=== PATIENT | female | born 1995 | race Caucasian/White ===

== ENCOUNTER 2022-07-21 11:42 | Emergency (ER) | payer OTHER, SELFPAY ==
[2022-07-21] VITALS (7 sets, daily range): BP systolic 117–123; BP diastolic 58–83; PULSE 57–75; RESP 15; TEMP 36.6; O2SAT 99–100; BMI 34.7
[2022-07-21 12:08] LABS: Add Manual Diff / Slide Review NO; Basophils Absolute Auto 0 /uL (0-100); Basophils Percent Auto 0.4 % (0-2); Eosinophils Absolute Auto 0 /uL (0-450); Eosinophils Percent Auto 0.8 % (2-4); Hematocrit 39.7 % (36-46); Lymphocytes Absolute Auto 1200 /uL (1100-4500); Lymphocytes Percent Auto 20.4 % (25-40); Mean Corpuscular HGB Conc 32.7 % (30-36); Mean Corpuscular Hemoglobin 28.3 PG (26-34); Mean Corpuscular Volume 86.4 fL (80-100); Monocytes Absolute Auto 700 /uL (0-900); Monocytes Percent Auto 12.3 % (3-14); Neutrophils Absolute Auto 3800 /uL (1500-7000); Neutrophils Percent Auto 66.1 % (50-75); Platelet Count 235 X10^3/uL (150-400); Red Blood Cell Count 4.59 X10^6/uL (4.0-5.2); Red Cell Distribution Width 13.1 % (11.6-14.8); White Blood Cell Count 5.8 X10^3/uL (4.5-11.0)
[2022-07-21 12:17] LABS: Alanine Aminotransferase 18 IU/L (<35); Alkaline Phosphatase 72 U/L (38-126); Aspartate Aminotransferase 23 IU/L (14-36); BUN Creatinine Ratio 15.9 (6-22); Bilirubin Total 0.4 mg/dL (0.2-1.3); Blood Urea Nitrogen 11 mg/dL (7-17); Calcium 8.8 mg/dL (8.4-10.2); Carbon Dioxide 26 mmol/L (22-32); Chloride 100 mmol/L (98-107); Estimated Glomerular Filt Rate > 60 mL/min (>60); Glucose 83 mg/dL (70-100); HEMOLYSIS < 15 (0-50); Lipase 34 U/L (23-300); Potassium 3.7 mmol/L (3.4-5.1); Sodium 136 mmol/L (137-145); Total Protein 7.7 g/dL (6.3-8.2)
[2022-07-21 14:14] LABS: Influenza A - CEPHEID Flu A NEGATIVE (NEGATIVE); Influenza B - CEPHEID Flu B NEGATIVE (NEGATIVE); Respiratory Syncytial Virus Negative (Negative)
[2022-07-21 14:26] LABS: COVID-19 CEPHEID 4-PLEX PCR Negative (Negative)
[2022-07-21] MEDS: KETOROLAC 30 MG/ML VIAL 15 MG IV (14:26)
[2022-07-21] MEDS: ONDANSETRON 4 MG/2 ML INJ IV (14:27)
--- NOTE | 2022-07-21 14:30 | DI.CT.S_ITS ---
PROCEDURE: CT ABDOMEN PELVIS W CON INDICATIONS: c/f appendicitis vs cholelithiasis vs colitis? RUQ RLQ pain TECHNIQUE: After the administration of intravenous contrast, axial sections acquired from the lung bases to the pubic symphysis. Coronal and sagittal reformats were performed. For radiation dose reduction, the following was used: automated exposure control, adjustment of mA and/or kV according to patient size. COMPARISON: None. FINDINGS: Image quality: Excellent. Lung bases: Unremarkable. Heart: No significant findings. ABDOMEN: Liver: Unremarkable. Gallbladder: Appears free of calcified gallstone or gallbladder wall inflammation. Biliary ducts: Unremarkable. Pancreas: Unremarkable. Spleen: Unremarkable. Adrenal Glands: Unremarkable. Kidneys and Ureters: Unremarkable. Stomach and Bowel: Stomach, small bowel loops, and colon are unremarkable. Peritoneum: No abnormal intraperitoneal fluid. No free air. Ventral Wall: No hernias. Abdominal Nodes: No retroperitoneal or mesenteric adenopathy by size criteria. Vessels: Aorta and inferior vena cava are normal in size. PELVIS: Pelvic Organs: Unremarkable, and at the right ovary there appears to be an involuting right ovarian cyst measuring only approximately 1.9 cm. Bladder: Unremarkable. Pelvic Nodes: No enlarged lymph nodes. Miscellaneous: No hernias are seen. A definite normal or abnormal appendix could not be located. There is a slight degree of increased radiodensity within the right lower quadrant pericolonic fat, immediately below the inferior tip of the right colon, but no abnormal adjacent free fluid is seen. Bones: Unremarkable. IMPRESSION: 1. The gallbladder appears normal. No calcified gallstones are seen. Please note that some cholesterol rich gallstones are not accurately detected by CT scanning but can be accurately detected by gallbladder ultrasound. There is no sign of gallbladder wall thickening or abnormal pericholecystic free fluid. 2. There is a small involuting 1.9 cm right ovarian cyst. A hemorrhagic ovarian cyst or evidence of ovarian torsion is not seen. 3. A definite normal or abnormal appendix could not be located. Minimal asymmetric pericolonic fat radiodensity is noted just below the cecum, a nonspecific finding. Continued close clinical follow-up is recommended for this patient. Dictated by: Rm Germain M.D. on 07/21/2022 at 14:57 Approved by: Rm Germain M.D. on 07/21/2022 at 15:04
--- NOTE | 2022-07-21 15:01 | ED_ITS ---
HPI - Abdominal Pain <Radha Rosa [place], [facility] - Last Filed: 07/21/22 17:00> General Chief Complaint: Abdominal Pain Stated Complaint: sent by [facility] [place]/abd pain thinks gallbladder Time Seen by Provider: 07/21/22 14:01 Source: patient Mode of arrival: Ambulatory History of Present Illness HPI narrative: This is a 27-year-old female presents to the emergency department from work today with acute onset of right upper quadrant pain that started last night, patient states that she felt chills, felt poorly and went to bed after having some oatmeal. Today she feels nausea and worsening pain to the right upper quadrant and flank. Denies history of abdominal surgery, denies fever, chills, shortness of breath, endorses congestion, mild sore denies any known sick contacts, she denies abnormal vaginal discharge, stool changes, states that she has not had a bowel movement for the last 2 days and typically has daily bowel movements. Denies vomiting, diaphoresis, recent trauma or sharp pain. She is accompanied by a co-worker from the [employer]. Her primary care provider is Dr. Tamayo at the [facility]. She was sent here for evaluation of her gallbladder with concern for cholecystitis. Patient denies any history of this before, denies any greasy stools, denies belching, heartburn, or history of right upper quadrant pain with fatty meals. Related Data Previous Rx's Medication Instructions Recorded ibuprofen 600 mg tablet 600 mg PO Q6-8H PRN fever or pain 07/21/22 #30 tabs ibuprofen 800 mg tablet 800 mg PO Q8H PRN pain #30 tabs 07/21/22 ondansetron 4 mg disintegrating 4 mg PO Q8H PRN nausea and 07/21/22 tablet vomiting #10 tabs ondansetron 4 mg disintegrating 4 mg PO Q8H PRN nausea and 07/21/22 tablet vomiting #10 tabs polyethylene glycol 3350 17 17 g PO DAILY PRN constipation 07/21/22 gram/dose oral powder (Miralax) #238 grams polyethylene glycol 3350 17 17 g PO DAILY PRN soft stool #238 07/21/22 gram/dose oral powder (Miralax) grams Allergies Allergy/AdvReac Type Severity Reaction Status Date / Time neomycin Allergy Verified 07/21/22 11:48 <Rosalind Cardenas, DO - Last Filed: 07/22/22 14:30> History of Present Illness HPI narrative: This is a 27-year-old female presents to the emergency department from work today with acute onset of right upper quadrant pain that started last night, patient states that she felt chills, felt poorly and went to bed after having some oatmeal. Today she feels nausea and worsening pain to the right upper quadrant and flank. Denies history of abdominal surgery, denies fever, chills, shortness of breath, endorses congestion, mild sore denies any known sick contacts, she denies abnormal vaginal discharge, stool changes, states that she has not had a bowel movement for the last 2 days and typically has daily bowel movements. Denies vomiting, diaphoresis, recent trauma or sharp pain. She is accompanied by a co-worker from the [employer]. Her primary care provider is Dr. Tamayo at the [facility]. She was sent here for evaluation of her gallbladder with concern for cholecystitis. Patient denies any history of this before, denies any greasy stools, denies belching, heartburn, or history of right upper quadrant pain with fatty meals. Review of Systems <DAFNE Calzada - Last Filed: 07/21/22 17:00> Review of Systems ROS Unobtainable: All systems reviewed & are unremarkable except as noted in HPI and below Patient History <DAFNE Calzada - Last Filed: 07/21/22 17:00> Social History Smoking Status: Unknown if ever smoked Smoking Status: Unknown if ever smoked alcohol intake frequency: holidays/special occasions only Substance Use Type: does not use Exam <DAFNE Calzada - Last Filed: 07/21/22 17:00> Narrative Exam Narrative: Reviewed vitals signs and nursing notes. General: cooperative, comfortable, in no acute distress, well groomed HEENT: symmetrical facial expressions, moist mucous membranes Cardiovascular: regular rate and rhythm, no peripheral edema, warm extremities Respiratory: normal effort, able to speak in complete sentences, without wheezing, stridor, or abnormal breath sounds. No retractions or tachypnea. GI: abdomen soft, patient was mildly tender with Singh's sign, nondistended, without masses, mild CVA tenderness verses muscle tenderness to the right flank, without rebound tenderness or exquisite tenderness with exam. MSK: moves all extremities, neurovascularly intact, no weakness, normal tone Skin: brisk capillary refill, without pallor or erythema Neuro: normal speech and cognition, A&O x3, ambulatory, clear speech Psych: mental status is grossly normal, congruent mood, normal affect, pleasant and cooperative Initial Vital Signs Initial Vital Signs: Vital Signs Temperature 97.9 F 07/21/22 11:48 Pulse Rate 75 07/21/22 11:48 Respiratory Rate 15 07/21/22 11:48 Blood Pressure 123/83 07/21/22 11:48 Pulse Oximetry 99 07/21/22 11:48 Oxygen Delivery Method 07/21/22 11:48 <Rosalind Cardenas DO - Last Filed: 07/22/22 14:30> Initial Vital Signs Initial Vital Signs: Vital Signs Temperature 97.9 F 07/21/22 11:48 Pulse Rate 75 07/21/22 11:48 Respiratory Rate 15 07/21/22 11:48 Blood Pressure 123/83 07/21/22 11:48 Pulse Oximetry 99 07/21/22 11:48 Oxygen Delivery Method 07/21/22 11:48 Course <DAFNE Calzada - Last Filed: 07/21/22 17:00> Orders Ordered: Discontinued Medications Ketorolac Tromethamine (Ketorolac 30 Mg/Ml Vial) 15 mg IV NOW ONE Stop: 07/21/22 14:14 Last Admin: 07/21/22 14:26 Dose: 15 mg Documented By: REBECCA Ondansetron HCl (Ondansetron 4 Mg/2 Ml Inj) 4 mg IV NOW PRN PRN Reason: Nausea And Vomiting Last Admin: 07/21/22 14:27 Dose: 4 mg Documented By: REBECCA Vital Signs Vital signs: Vital Signs - 8 hr 07/21/22 11:48 07/21/22 13:18 07/21/22 13:19 Temperature 97.9 F Pulse Rate 75 67 63 Respiratory Rate 15 Blood Pressure 123/83 Pulse Oximetry 99 100 100 Oxygen Delivery Method Room Air 07/21/22 13:19 07/21/22 13:30 07/21/22 14:00 Temperature Pulse Rate 62 57 L Respiratory Rate Blood Pressure 118/58 L Pulse Oximetry 100 100 Oxygen Delivery Method 07/21/22 14:30 07/21/22 15:37 Temperature Pulse Rate 58 L 60 Respiratory Rate Blood Pressure 117/58 L Pulse Oximetry 100 100 Oxygen Delivery Method Room Air <Rosalind Cardenas DO - Last Filed: 07/22/22 14:30> Orders Ordered: Discontinued Medications Ketorolac Tromethamine (Ketorolac 30 Mg/Ml Vial) 15 mg IV NOW ONE Stop: 07/21/22 14:14 Last Admin: 07/21/22 14:26 Dose: 15 mg Documented By: REBECCA Ondansetron HCl (Ondansetron 4 Mg/2 Ml Inj) 4 mg IV NOW PRN PRN Reason: Nausea And Vomiting Last Admin: 07/21/22 14:27 Dose: 4 mg Documented By: REBECCA Vital Signs Vital signs: Vital Signs - 8 hr 07/21/22 11:48 07/21/22 13:18 07/21/22 13:19 Temperature 97.9 F Pulse Rate 75 67 63 Respiratory Rate 15 Blood Pressure 123/83 Pulse Oximetry 99 100 100 Oxygen Delivery Method Room Air 07/21/22 13:19 07/21/22 13:30 07/21/22 14:00 Temperature Pulse Rate 62 57 L Respiratory Rate Blood Pressure 118/58 L Pulse Oximetry 100 100 Oxygen Delivery Method 07/21/22 14:30 07/21/22 15:37 Temperature Pulse Rate 58 L 60 Respiratory Rate Blood Pressure 117/58 L Pulse Oximetry 100 100 Oxygen Delivery Method Room Air MDM - Abdominal Pain <DAFNE Calzada - Last Filed: 07/21/22 17:00> Lab Data Result diagrams: 07/21/22 12:00 07/21/22 12:00 Labs: Lab Results 07/21/22 07/21/22 07/21/22 Range/Units 12:00 12:00 13:20 WBC 5.8 (4.5-11.0) X10^3/uL RBC 4.59 (4.0-5.2) X10^6/uL Hgb 13.0 (12.0-16.0) g/dL Hct 39.7 (36-46) % MCV 86.4 (80-100) fL MCH 28.3 (26-34) PG MCHC 32.7 (30-36) % RDW 13.1 (11.6-14.8) % Plt Count 235 (150-400) X10^3/uL Neut % (Auto) 66.1 (50-75) % Lymph % (Auto) 20.4 L (25-40) % [place] % (Auto) 12.3 (3-14) % Eos % (Auto) 0.8 L (2-4) % Baso % (Auto) 0.4 (0-2) % Neut # (Auto) 3800 (6583-4329) /uL Lymph # (Auto) 1200 (6771-6506) /uL [place] # (Auto) 700 (0-900) /uL Eos # (Auto) 0 (0-450) /uL Baso # (Auto) 0 (0-100) /uL Sodium 136 L (137-145) mmol/L Potassium 3.7 (3.4-5.1) mmol/L Chloride 100 (98-107) mmol/L Carbon Dioxide 26 (22-32) mmol/L BUN 11 (7-17) mg/dL Creatinine 0.69 (0.52-1.04) mg/dL Estimated GFR > 60 (>60) mL/min BUN/Creatinine Ratio 15.9 (6-22) Glucose 83 (70-100) mg/dL Calcium 8.8 (8.4-10.2) mg/dL Total Bilirubin 0.4 (0.2-1.3) mg/dL AST 23 (14-36) IU/L ALT 18 (<35) IU/L Alkaline Phosphatase 72 (38-126) U/L Total Protein 7.7 (6.3-8.2) g/dL Albumin 4.4 (3.5-5.0) g/dL Globulin 3.3 (1.7-4.1) g/dL Albumin/Globulin Ratio 1.3 (1.0-2.8) Lipase 34 (23-300) U/L SARS-CoV-2 (PCR) Negative (Negative) Influenza A (RT-PCR) Flu a negative (NEGATIVE) Influenza B (RT-PCR) Flu b negative (NEGATIVE) RSV (PCR) Negative (Negative) Point of care testing: Point of Care Testing Test Results Negative Urine Dip Bedside Urine Glucose Negative Bedside Urine Bilirubin - Negative Bedside Urine Ketone - Negative Urine Specific Avant 1.010 Bedside Urine Occult Blood - Negative Bedside Urine pH 6.0 Bedside Urine Protein - Negative Bedside Urine Urobilinogen - Negative Bedside Urine Nitrite - Negative Bedside Urine Leukocytes - Negative Esterase Imaging Data CT scan - abdomen/pelvis: Radiologist's Impression: PROCEDURE:? CT ABDOMEN PELVIS W CON ? INDICATIONS:? c/f appendicitis vs cholelithiasis vs colitis? RUQ RLQ pain ? TECHNIQUE:? After the administration of intravenous contrast, axial sections acquired from the lung bases to the pubic symphysis.? Coronal and sagittal reformats were performed.? For radiation dose reduction, the following was used:? automated exposure control, adjustment of mA and/or kV according to patient size.? ? COMPARISON:? None. ? FINDINGS:? Image quality:? Excellent.? ? Lung bases:? Unremarkable. Heart:? No significant findings. ? ABDOMEN: Liver:? Unremarkable.? ? Gallbladder:? Appears free of calcified gallstone or gallbladder wall inflammation.? ? Biliary ducts:? Unremarkable.? ? Pancreas:? Unremarkable.? ? Spleen:? Unremarkable.? ? Adrenal Glands:? Unremarkable.? ? Kidneys and Ureters:? Unremarkable.? ? ? Stomach and Bowel:? Stomach, small bowel loops, and colon are unremarkable.? Peritoneum:? No abnormal intraperitoneal fluid.? No free air.? ? Ventral Wall: ? No hernias.? Abdominal Nodes:? No retroperitoneal or mesenteric adenopathy by size criteria.? Vessels:? Aorta and inferior vena cava are normal in size.? ? PELVIS: Pelvic Organs:? Unremarkable, and at the right ovary there appears to be an involuting right ovarian cyst measuring only approximately 1.9 cm.? ? Bladder:? Unremarkable.? ? Pelvic Nodes: No enlarged lymph nodes.? Miscellaneous: No hernias are seen. ? A definite normal or abnormal appendix could not be located.? There is a slight degree of increased radiodensity within the right lower quadrant pericolonic fat, immediately below the inferior tip of the right colon, but no abnormal adjacent free fluid is seen.? ? Bones:? Unremarkable.? IMPRESSION:? ? 1.? The gallbladder appears normal.? No calcified gallstones are seen.? Please note that some cholesterol rich gallstones are not accurately detected by CT scanning but can be accurately detected by gallbladder ultrasound.? There is no sign of gallbladder wall thickening or abnormal pericholecystic free fluid. ? 2.? There is a small involuting 1.9 cm right ovarian cyst.? A hemorrhagic ovarian cyst or evidence of ovarian torsion is not seen. ? 3.? A definite normal or abnormal appendix could not be located.? Minimal asymmetric pericolonic fat radiodensity is noted just below the cecum, a nonspecific finding.? Continued close clinical follow-up is recommended for this patient.? ? ? Dictated by: Rm Germain M.D. on 07/21/2022 at 14:57 ? ? Approved by: Rm Germain M.D. on 07/21/2022 at 15:04 ? MDM Narrative Medical decision making narrative: Medical decision making narrative: This is a 27-year-old female presents to the emergency department from work today with acute onset of right upper quadrant pain that started last night, patient states that she felt chills, felt poorly and went to bed after having some oatmeal. Today she feels nausea and worsening pain to the right upper quadrant and flank. Differential diagnoses include, but are not limited to: Cholecystitis, acute viral illness, gastroenteritis, pancreatitis, diverticulitis, appendicitis, nephrolithiasis, pyelonephritis, UTI, ovarian cyst, pelvic infection, hepatic steatosis, acute hepatitis I have reviewed the patient's vital signs and nursing notes as well as prior records if available And patient has not been here for similar complaints in the past Lab test results independently reviewed, pertinent findings: Patient's lab work overall is unremarkable, no electrolyte abnormalities, elevation of liver enzymes or transaminases, respiratory panel negative for all tested viruses, no leukocytosis or anemia. My imaging interpretation: CT abdomen without gallstone, there is a small ovarian cyst on the right, no evidence of acute appendicitis Patient's symptoms improved with Toradol and Zofran. She is tolerating p.o., CT is negative for acute abdominal abnormality. Patient maybe having referred pain from her ovarian cyst, this could be a subacute appendicitis, treat for ovarian cyst and provide follow-up with OBGYN as needed, patient will need to clear with [employer] prior to returning to duty, she was given a work note to avoid running or jarring activities, stool softener, encourage hydration, Tylenol and ibuprofen as needed and to return to the emergency department for any worsening symptoms or acute change. Patient's symptoms improved over duration of stay with above-stated therapies. Questions are addressed and there is agreement with the plan and for follow-up. Patient is appropriate for outpatient management. MIPS: This encounter doesn't have any diagnosis associated with MIPS criteria. I collaborated with the ED attending physician for AD level 2, 3, and some level 4s as appropriate. <Rosalind Jaren Cardenas, DO - Last Filed: 07/22/22 14:30> Lab Data Labs: Lab Results 07/21/22 07/21/22 07/21/22 Range/Units 12:00 12:00 13:20 WBC 5.8 (4.5-11.0) X10^3/uL RBC 4.59 (4.0-5.2) X10^6/uL Hgb 13.0 (12.0-16.0) g/dL Hct 39.7 (36-46) % MCV 86.4 (80-100) fL MCH 28.3 (26-34) PG MCHC 32.7 (30-36) % RDW 13.1 (11.6-14.8) % Plt Count 235 (150-400) X10^3/uL Neut % (Auto) 66.1 (50-75) % Lymph % (Auto) 20.4 L (25-40) % [place] % (Auto) 12.3 (3-14) % Eos % (Auto) 0.8 L (2-4) % Baso % (Auto) 0.4 (0-2) % Neut # (Auto) 3800 (6501-1436) /uL Lymph # (Auto) 1200 (6991-6350) /uL [place] # (Auto) 700 (0-900) /uL Eos # (Auto) 0 (0-450) /uL Baso # (Auto) 0 (0-100) /uL Sodium 136 L (137-145) mmol/L Potassium 3.7 (3.4-5.1) mmol/L Chloride 100 (98-107) mmol/L Carbon Dioxide 26 (22-32) mmol/L BUN 11 (7-17) mg/dL Creatinine 0.69 (0.52-1.04) mg/dL Estimated GFR > 60 (>60) mL/min BUN/Creatinine Ratio 15.9 (6-22) Glucose 83 (70-100) mg/dL Calcium 8.8 (8.4-10.2) mg/dL Total Bilirubin 0.4 (0.2-1.3) mg/dL AST 23 (14-36) IU/L ALT 18 (<35) IU/L Alkaline Phosphatase 72 (38-126) U/L Total Protein 7.7 (6.3-8.2) g/dL Albumin 4.4 (3.5-5.0) g/dL Globulin 3.3 (1.7-4.1) g/dL Albumin/Globulin Ratio 1.3 (1.0-2.8) Lipase 34 (23-300) U/L SARS-CoV-2 (PCR) Negative (Negative) Influenza A (RT-PCR) Flu a negative (NEGATIVE) Influenza B (RT-PCR) Flu b negative (NEGATIVE) RSV (PCR) Negative (Negative) Point of care testing: Point of Care Testing Test Results Negative Urine Dip Bedside Urine Glucose Negative Bedside Urine Bilirubin - Negative Bedside Urine Ketone - Negative Urine Specific Avant 1.010 Bedside Urine Occult Blood - Negative Bedside Urine pH 6.0 Bedside Urine Protein - Negative Bedside Urine Urobilinogen - Negative Bedside Urine Nitrite - Negative Bedside Urine Leukocytes - Negative Esterase Discharge Plan Departure Patient Disposition: Home Clinical Impression: Ovarian cyst Qualifiers: Laterality: right Qualified Code(s): N83.201 - Unspecified ovarian cyst, right side Instructions: Ovarian Cyst Activity Restrictions/Additional Instructions: *You have been diagnosed with a right-sided ovarian cyst without other abnormal findings on your labs or your abdominal CT. This can cause nausea pain partially if you have constipation. Please start taking a stool softener, this may help with ovarian cyst pain. The CT is inconclusive about clear visualization regarding the appendix. If your pain gets worse, if you have fever, chills, please come back for another evaluation. Please stay hydrated with plenty of fluids, use Zofran for nausea. Your respiratory panel is negative for the tested viruses. There is no surrounding fluid around where the appendix is so this is a good sign. Please follow-up with your primary care provider, thank you for your patients today for all of the testing, I hope that this improves for you. *What to do: *Please continue to take your regular medications as directed. [x ] New medication prescriptions sent to your pharmacy: [ DOD] [ ] New medication written as a paper prescription [ ] No new medications given *Please follow up with your primary care provider in 2-3 days, call for an appointment. Let them know you were seen in the Emergency Department and that we asked that you be seen for follow-up. We will electronically transmit a record of today's note if your PCP is in our system *If you do not have a primary care provider please contact [phone] to establish care with one of the [facility] primary care providers. *Return to Emergency Department if you should have any new, worsening, or concerning symptoms, such as [fever greater than 101F, chills, worsening pain, persistent vomiting or other bothersome symptoms]. Prescriptions: New ondansetron 4 mg tablet,disintegrating 4 mg PO Q8H PRN (Reason: nausea and vomiting) Qty: 10 0RF ibuprofen 800 mg tablet 800 mg PO Q8H PRN (Reason: pain) Qty: 30 0RF Rx Instructions: Please take with food and water every 8 hours as needed for pain polyethylene glycol 3350 [Miralax] 17 gram/dose powder 17 g PO DAILY PRN (Reason: constipation) Qty: 238 0RF ibuprofen 600 mg tablet 600 mg PO Q6-8H PRN (Reason: fever or pain) Qty: 30 0RF ondansetron 4 mg tablet,disintegrating 4 mg PO Q8H PRN (Reason: nausea and vomiting) Qty: 10 0RF polyethylene glycol 3350 [Miralax] 17 gram/dose powder 17 g PO DAILY PRN (Reason: soft stool) Qty: 238 0RF Referrals: Aminta Tomas MD [Physician] - Provider,Charisse FARNSWORTH [Primary Care Provider] - Bryant Burleson MD [Physician] - Stand Alone Forms: Patient Portal/API, Work Release Note <Rosalind Cardenas DO - Last Filed: 07/22/22 14:30> Cosign ED Attending Veronicaature Attestation: I was immediately available in the department for consultation. Documentation has been reviewed.
[2022-07-21 16:14] LABS: Albumin 4.4 g/dL (3.5-5.0); Albumin Globulin Ratio 1.3 (1.0-2.8); Globulin 3.3 g/dL (1.7-4.1)
== END 2022-07-21 15:38 | disposition home or self-care (01) ==
PROVIDERS: Emergency Medicine; Emergency Provider Nurse Practitioner Critical Care Medicine
DX: N83.201 Unspecified ovarian cyst, right side (principal); Z20.822 Contact with and (suspected) exposure to COVID-19
CPT/HCPCS: 0241U; 36415; 74177; 80053; 81003; 81025; 83690; 85025; 96374; 96375; 99284; J1885; J2405